=== PATIENT | female | born 1995 | race African-American/Black ===

== ENCOUNTER → 2017-03-16 | Outpatient (CLI) | payer MEDICAID ==
[~2017-03-16] MED LIST: AUGM875T PO; MICO2CRE4 VAGINAL; MICO4CRE PV; Z.0.BCPILL PO
== END ==
LOC: HPND 12:51
PROVIDERS: ATTEND Obstetrics & Gynecology
DX: O35.8XX0 Maternal care for other (suspected) fetal abnormality and damage, not applicable or unspecified (principal); Z3A.24 24 weeks gestation of pregnancy
CPT/HCPCS: 76811

== ENCOUNTER 2018-01-10 12:00 | Emergency (ER) | payer SELFPAY ==
[2018-01-10 12:31] VITALS: BP 158/92; PULSE 71; RESP 18; TEMP 98.3; O2SAT 100
--- NOTE | 2018-01-10 13:01 | RADRPT ---
EXAM DATE/TIME: 01/10/2018 12:50 [place] COMPARISON: No previous studies available for comparison. INDICATIONS : Headache radiating from neck to forehead,pressure behind eyes,nausea RADIATION DOSE: 56.35 CTDIvol (mGy) MEDICAL HISTORY : Diabetes SURGICAL HISTORY : Hysterectomy. ENCOUNTER: Initial ACUITY: 1 day PAIN SCALE: 7/10 LOCATION: cranial TECHNIQUE: Multiple contiguous axial images were obtained of the head. Using automated exposure control and adj ustment of the mA and/or kV according to patient size, radiation dose was kept as low as reasonably a chievable to obtain optimal diagnostic quality images. DICOM format image data is available electro nically for review and comparison. FINDINGS: CEREBRUM: The ventricles are normal for age. No evidence of midline shift, mass lesion, hemorrhage or acute in farction. No extra-axial fluid collections are seen. POSTERIOR FOSSA: The cerebellum and brainstem are intact. The 4th ventricle is midline. The cerebellopontine angle i s unremarkable. EXTRACRANIAL: The visualized portion of the orbits is intact. SKULL: The calvaria is intact. No evidence of skull fracture. CONCLUSION: No acute intracranial abnormality. Juaquin Valdivia MD on January 10, 2018 at 12:59 Board Certified Radiologist. This report was verified electronically.
[2018-01-10] MEDS ORDERED: SODIUM CHLOR 0.9% 1000 ML INJ 1,000 ML IV ONE (13:30)
[2018-01-10] MEDS ORDERED: KETOROLAC TROMETHAMINE 30 MG/ML (IVP) VIAL IVP ONE (13:30)
--- NOTE | 2018-01-10 13:39 | PD ---
HPI Chief Complaint: Headache Time Seen by Provider: 13:20 Travel History International Travel<30 days: No Contact w/Intl Traveler<30days: No Traveled to known affect area: No History of Present Illness HPI 22-year-old female presents to the emergency Department with complaint of headache since Monday. Denies head injury. Woke up with headache on Monday morning. Reports history of headache, but not like this. Headache goes from the back of the neck and radiates to her forehead. Denies fevers. Reports pressure behind her ears. Reports nausea without vomiting. Reports dizziness. Denies photophobia. Denies change in mentation, confusion, disorientation, slurred speech, focal deficits weakness. Headache is constant. It says it stays the same since Monday. Rates pain 05/15. Describes it as a "pulling." Has tried taking Excedrin, Goody's powder, ibuprofen with no symptom relief. No known aggravating or relieving factors. Is currently breast-feeding her 6- month-old infant. Was sent here by her primary care provider, as [facility]. No known allergies. Denies significant past medical to. Has no other medical complaints. No other modifying factors or associated signs and symptoms. PFSH Past Medical History Diabetes: Yes (gestational) Patient Takes Glucophage: No Medical other: Yes (LOW IRON) Tetanus Vaccination: Unknown Influenza Vaccination: No ?: Not LMP: 12/30/17 Past Surgical History Surgical History: No Previous Surgery Social History Alcohol Use: No Tobacco Use: No Substance Use: No Allergies-Medications (Allergen,Severity, Reaction): Coded Allergies: No Known Allergies (Unverified Adverse Reaction, Unknown, 01/10/18) Reported Meds & Prescriptions Reported Meds & Active Scripts Active No Active Prescriptions or Reported Medications Review of Systems Except as stated in HPI: all other systems reviewed are Neg Physical Exam Narrative GENERAL: Well-nourished, well-developed black female patient, in no acute distress SKIN: Warm and dry. HEAD: Atraumatic. Normocephalic. No facial droop noted. Tongue midline. Shoulder shrug equal. Finger to nose test normal. EYES: Pupils equal and round at 4 mm with brisk reaction. No scleral icterus. No injection or drainage. PERRLA. EOMI. ENT: Mucosa pink and moist. Airway patent. NECK: Trachea midline. No lymphadenopathy. CARDIOVASCULAR: Regular rate and rhythm. No murmur appreciated. RESPIRATORY: No accessory muscle use. Clear to auscultation. Breath sounds equal bilaterally. GASTROINTESTINAL: Abdomen soft, non-tender, nondistended. Hepatic and splenic margins not palpable. Bowel sounds are active 4 quadrants. MUSCULOSKELETAL: No obvious deformities. No clubbing. No cyanosis. No edema. NEUROLOGICAL: Awake and alert. Oriented 4. No obvious cranial nerve deficits. Motor grossly within normal limits. Normal speech. No ataxia. No mid -line drift. Moves all extremities. No upper or lower extremity drift. Sensory intact and equal bilaterally. 5/5 strength to all extremities. PSYCHIATRIC: Appropriate mood and affect; insight and judgment normal. Data Data Last Documented VS Vital Signs Date Time Temp Pulse Resp B/P (MAP) Pulse Ox O2 Delivery O2 Flow Rate FiO2 01/10/18 15:03 72 16 142/96 (111) 99 Room Air 01/10/18 12:[address] Brain W/O Iv Contrast(Rout) (01/10/18 ) Sodium Chlor 0.9% 1000 Ml Inj (Ns 1000 M (01/10/18 13:30) Iv Access Insert/Monitor (01/10/18 13:30) Ketorolac Inj (Toradol Inj) (01/10/18 13:30) Prochlorperazine Inj (Compazine Inj) (01/10/18 15:00) Diphenhydramine Inj (Benadryl Inj) (01/10/18 15:00) Ketorolac Inj (Toradol Inj) (01/10/18 15:15) MDM Medical Decision Making Medical Screen Exam Complete: Yes Emergency Medical Condition: Yes Medical Record Reviewed: Yes Differential Diagnosis Tension headache, acute headache, migraine headache Narrative Course 22-year-old female with headache since Monday. Neuro exam is unremarkable. History of headaches, but not the same. Denies focal deficits or weakness. Currently breast-feeding. CT head ordered in triage and is unremarkable. Discussed CT findings with the patient. Patient is driving. IV, normal saline bolus, Toradol ordered. 1455: Patient was continued headache and no changes after normal saline bolus and Toradol. I discussed Compazine, Benadryl and effects on breast-feeding and the patient was like to receive the medications. She is having her , come to pick her up. Compazine and Benadryl ordered. 1539: On reexamination the patient's headache is gone. She rates pain 0/10. Ibuprofen prescribed for home. Instructed patient to pump and dump for the next 24 hours. Instructed patient to follow up with primary care provider. Patient verbalizes understanding and agreement with treatment plan. Patient is medically cleared and stable for discharge. Discussed reasons to return to the emergency department. Patient agrees with treatment plan. The patients vital signs are stable and the patient is stable for outpatient follow-up and treatment. Patient discharged home, stable and in no acute distress. Diagnosis Primary Impression: Acute headache Qualified Codes: R51 - Headache Referrals: [facility] Primary Care Physician Patient Instructions: Acute Headache (ED), General Instructions Additional Instructions: Pump and dump for 24 hours Ibuprofen or Tylenol as directed and as needed to reduce headache Get plenty of rest: do not over sleep rest and relax in a dark, quiet room as needed Place an ice pack on the back of her neck to reduce head pain as needed Keep a headache diary of what triggers her headaches and what treatment is most effective Avoid identifiable triggers Avoid smoking, alcohol and caffeine consumption Reduce stress Follow-up with primary care provider within 1-2 days Follow-up with neurology Return immediately to the emergency department with worsening symptoms Med/Other Pt SpecificInfo: Prescription(s) given Scripts Ibuprofen (Ibuprofen) 800 Mg Tab 800 MG PO Q6HR Y for PAIN, #30 TAB 0 Refills Prov: Romana Mcgovern 01/10/18 Disposition: 01 DISCHARGE HOME Condition: Stable Romana Mcgovern Jan 10, 2018 13:39
[2018-01-10] MEDS ORDERED: diphenhydrAMINE HCL 50 MG/ML VIAL IVP ONE (15:00)
[2018-01-10] MEDS ORDERED: PROCHLORPERAZINE INJ 10 MG/2 ML VIAL IVP ONE (15:00)
[2018-01-10 15:03] VITALS: BP 142/96; PULSE 72; RESP 16; O2SAT 99
[2018-01-10] MEDS ORDERED: KETOROLAC TROMETHAMINE 60 MG/2 ML (IM) VIAL IM ONE (15:15)
[2018-01-10] MEDS ORDERED: IBUP1TAB7 PO (15:39)
== END 2018-01-10 16:04 | disposition home or self-care (01) ==
LOC: NEPD 12:00
DX: R51 Headache (principal)
CPT/HCPCS: 70450; 96372; 96374; 96375; 99284; J0780; J1200; J1885; J7030